=== PATIENT | female | born 1970 | race Caucasian/White ===

== ENCOUNTER 2020-01-27 11:19 | Outpatient (CLI) | payer MEDICARE, MEDICAID, SELFPAY ==
--- NOTE | 2020-01-27 11:28 | XR_ITS ---
WS: [id number] FOOT RIGHT TECHNIQUE: 3 views of the right foot CLINICAL INFORMATION: PAIN, REDNESS, NONHEALING ULCER COMPARISON: None. FINDINGS: No evidence of acute fracture or dislocation. Normal tarsal metatarsal alignment. Normal calcaneus. N ormal visualized talar dome. Plantar calcaneal spurring. Soft tissue edema first toe. Vascular calcif ication. XR/XR foot RT min 3V* [id number] IMPRESSION: No evidence of osteomyelitis.
== END 2020-01-27 11:20 | disposition home or self-care (01) ==
PROVIDERS: Family Provider Family Medicine; PCP Family Medicine; Visit Provider Nurse Practitioner Family
DX: M79.671 Pain in right foot (principal)
CPT/HCPCS: 73630

== ENCOUNTER 2020-02-10 10:01 | Outpatient (RCR) | payer MEDICARE, MEDICAID, SELFPAY | END 2020-02-22 23:59 | disposition home or self-care (01) | LOC: WOUND 10:01 | PROVIDERS: Family Provider Family Medicine; PCP Family Medicine; Visit Provider Nurse Practitioner Family | DX: E11.621 Type 2 diabetes mellitus with foot ulcer (principal); L97.512 Non-pressure chronic ulcer of other part of right foot with fat layer exposed; M79.671 Pain in right foot | CPT/HCPCS: 11042; 73630; 87070; 87077; 87176; 87186; 87205; 99213; G0463; L3260 ==

== ENCOUNTER 2020-04-12 13:37 | Outpatient (CLI) | payer MEDICARE, MEDICAID, SELFPAY | END 2020-04-12 13:38 | disposition home or self-care (01) | LOC: WOUND 13:38 | PROVIDERS: Family Provider Family Medicine; PCP Family Medicine; Visit Provider Nurse Practitioner Family | DX: E11.621 Type 2 diabetes mellitus with foot ulcer (principal); L97.512 Non-pressure chronic ulcer of other part of right foot with fat layer exposed | CPT/HCPCS: 11042; 99213; G0463; L3260 ==

== ENCOUNTER 2020-04-19 14:21 | Outpatient (CLI) | payer MEDICARE, MEDICAID, SELFPAY | END 2020-04-19 14:22 | disposition home or self-care (01) | LOC: WOUND 14:22 | PROVIDERS: Family Provider Family Medicine; PCP Family Medicine; Visit Provider Nurse Practitioner Family | DX: Z09 Encounter for follow-up examination after completed treatment for conditions other than malignant neoplasm (principal) | CPT/HCPCS: 99202; 99212 ==

== ENCOUNTER 2020-08-02 08:03 | Outpatient (CLI) | payer MEDICARE, MEDICAID, SELFPAY ==
--- NOTE | 2020-08-02 09:44 | XRR_ITS ---
PROCEDURE INFORMATION: Exam: XR Right Foot Complete Exam date and time: 08/02/2020 10:16 AM Age: 50 years old Clinical indication: Pain; Foot; Right; Additional info: Pain/redness/non healing ulcer/? Osteomyelitis-great toe TECHNIQUE: Imaging protocol: XR Right foot. Views: 3 or more views. COMPARISON: CR XR foot RT min 3V* [id number] 01/27/2020 11:34 AM FINDINGS: Bones/joints: No fracture. No dislocation. No bone destruction. No periosteal reaction. There are calcaneal plantar and Achilles tendon insertion enthesophytes. There is an accessory ossicle, an os trigonum. Soft tissues: Suggestion of an ulcer at the plantar aspect of the medial forefoot or proximal great toe as indicated on the lateral view. No radiopaque foreign body. Vasculature: There is medial calcinosis affecting small arterial branches which can be associated with diabetes mellitus and/or renal insufficiency. XR/XR foot RT min 3V* [id number] IMPRESSION: No sign of osteomyelitis.
== END 2020-08-02 08:04 | disposition home or self-care (01) ==
LOC: WOUND 08:04
PROVIDERS: Family Provider Family Medicine; PCP Family Medicine; Visit Provider Emergency Medicine
DX: E11.621 Type 2 diabetes mellitus with foot ulcer (principal); L97.512 Non-pressure chronic ulcer of other part of right foot with fat layer exposed
CPT/HCPCS: 11042; 73630; 87070; 87077; 87176; 87186; 87205; G0463; L3260

== ENCOUNTER 2020-08-09 08:28 | Outpatient (CLI) | payer MEDICARE, MEDICAID, SELFPAY | END 2020-08-09 08:29 | disposition home or self-care (01) | LOC: WOUND 08:29 | PROVIDERS: Family Provider Family Medicine; PCP Family Medicine; Visit Provider Emergency Medicine | DX: E11.621 Type 2 diabetes mellitus with foot ulcer (principal); L97.412 Non-pressure chronic ulcer of right heel and midfoot with fat layer exposed | CPT/HCPCS: 11042; L2999 ==

== ENCOUNTER 2020-08-16 08:40 | Outpatient (CLI) | payer MEDICARE, MEDICAID, SELFPAY | END 2020-08-16 08:41 | disposition home or self-care (01) | LOC: WOUND 08:41 | PROVIDERS: Family Provider Family Medicine; PCP Family Medicine; Visit Provider Nurse Practitioner Family | DX: Z09 Encounter for follow-up examination after completed treatment for conditions other than malignant neoplasm (principal) | CPT/HCPCS: 99212 ==